=== PATIENT | male | born 1970 | race Caucasian/White ===

== ENCOUNTER 2022-07-25 19:04 | Observation (INO) | payer BC ==
[2022-07-25] MEDS ORDERED: Aspirin 81 MG Tab.Chew PO ONE (19:11)
[2022-07-25] MEDS ORDERED: Sodium Chloride 0.9% 1,000 ML IV SCH (19:15)
[2022-07-25 20:03] LABS: PTT,PARTIAL THROMBOPLSTIN TIME 26.7 SEC (23.2-32.3)
[2022-07-25] MEDS ORDERED: atorvaSTATin 10 MG Tab PO ONE (20:51)
[2022-07-25] MEDS: Sodium Chloride 0.9% 1,000 ML IV SCH (20:55)
[2022-07-25 21:03] LABS: CORONAVIRUS COVID-19 NAA NEGATIVE (NEGATIVE)
[2022-07-25 21:04] LABS: RESPIRATORY SYNCYTIAL VIR NAA NEGATIVE (NEGATIVE)
[2022-07-25] MEDS ORDERED: Oseltamivir 75 MG Cap PO ONE (21:12)
[2022-07-25] MEDS ORDERED: Ondansetron 4 MG Tab.DIS PO PRN (22:09)
[2022-07-26] MEDS: Acetaminophen 325 MG Tab PO PRN ×2 (03:05→11:27)
[2022-07-26] MEDS: Sodium Chloride 0.9% 1,000 ML IV SCH (04:46)
[2022-07-26] MEDS ORDERED: Lisinopril 20 MG Tab PO SCH (08:00)
[2022-07-26] MEDS ORDERED: Spironolactone 25 MG Tab PO SCH (08:00)
[2022-07-26] MEDS ORDERED: Metoprolol Succinate 100 MG Tab.ER PO SCH (08:00)
[2022-07-26] MEDS ORDERED: Oseltamivir 30 MG Cap PO SCH (08:00)
[2022-07-26] MEDS ORDERED: atorvaSTATin 10 MG Tab PO SCH (20:00)
[2022-07-26] MEDS ORDERED: Enoxaparin 40 MG/0.4 ML Syringe SUBCUT SCH (20:00)
== END 2022-07-26 13:00 | disposition home or self-care (01) ==
LOC: CC.ED 19:04 → CC.MS 21:15 → UNDOADMOB 21:15 → CC.MS 22:09
PROVIDERS: ADMIT Nurse Practitioner Family; ATTEND Nurse Practitioner Family
DX: N17.9 Acute kidney failure, unspecified (principal); E86.0 Dehydration; J10.1 Influenza due to other identified influenza virus with other respiratory manifestations; I44.4 Left anterior fascicular block; Z79.899 Other long term (current) drug therapy; Z79.84 Long term (current) use of oral hypoglycemic drugs; Z20.822 Contact with and (suspected) exposure to COVID-19; Z91.030 Bee allergy status
CPT/HCPCS: 0241U; 36415; 71045; 80048; 80053; 81001; 83605; 83735; 84484; 85025; 85610; 85730; 93005; 93010; 96360; 99285-25; A9270-GY; J7030

== ENCOUNTER 2023-04-24 07:57 | Emergency (ER) | payer BC ==
[2023-04-24] MEDS ORDERED: Sodium Chloride 0.9% 1,000 ML IV ONE (08:31)
[2023-04-24 08:52] LABS: BILIRUBIN TOTAL 0.5 mg/dL (0.0-1.0); C-REACTIVE PROTEIN 0.18 mg/dL (<=0.30); CALCIUM 9.8 mg/dL (8.4-10.1); EST CRCL DRUG DOSING (CG) 17.84 mL/min; POTASSIUM,K 5.5 mEq/L (3.5-5.0); PROTEIN TOTAL,TP 8.6 g/dL (6.4-8.2)
[2023-04-24 08:59] LABS: CREATININE 5.1 mg/dL (0.7-1.3)
[2023-04-24] MEDS ORDERED: Glucagon,Human Recombinant 1 MG Vial IM PRN ×2 (09:04→11:11)
[2023-04-24] MEDS ORDERED: 50% Dextrose in Water 50 ML Syringe IVPUSH ONE (09:04)
[2023-04-24] MEDS ORDERED: Insulin Regular, Human 100 Units/ML 3 ML Vial IV ONE ×2 (09:04→11:11)
[2023-04-24 09:07] LABS: HEMATOCRIT 58.7 % (42.0-52.0); MEAN CORPUSCULAR HEMOGLOBIN 28.7 pg (27.0-32.0); MEAN CORPUSCULAR HGB CONC 32.9 g/dL (32.0-36.0); MEAN CORPUSCULAR VOLUME 87.4 fL (83.0-97.0); PLATELET COUNT,PLT 529 10^3/uL (150-400); RED BLOOD CELL COUNT 6.72 x10^6/uL (4.50-6.00)
[2023-04-24] MEDS ORDERED: Calcium Gluconate 1 GM in Sodium Chloride 0.9% 100 ML IV ONE ×2 (09:07→10:51)
[2023-04-24] MEDS ORDERED: Dextrose 10% in Water 1,000 ML IV SCH (09:15)
[2023-04-24] MEDS ORDERED: Sodium Chloride 0.9% 1,000 ML IV SCH (09:15)
[2023-04-24 09:20] LABS: HEMOGLOBIN 19.3 g/dL (14.0-18.0); WHITE BLOOD CELL COUNT,WBC 26.6 10^3/uL (4.0-11.0)
[2023-04-24] MEDS ORDERED: Lactated Ringers 1,000 ML IV ONE (09:28)
[2023-04-24] MEDS ORDERED: Morphine 2 MG/ML SYRINGE IVPUSH ONE (09:31)
[2023-04-24 09:35] LABS: LYMPHOCYTES PERCENT MAN 13 % (21-55); MONOCYTES PERCENT MAN 8 % (2-12); SEG NEUTROPHILS PERCENT MAN 79 % (35-85)
[2023-04-24] MEDS ORDERED: VANCOmycin 2 GM/400 ML 2 GM in Premix Bag 1 BAG IV ONE (09:37)
[2023-04-24] MEDS ORDERED: Piperacillin/Tazobactam 4.5 GM in Sodium Chloride 0.9% 100 ML IV ONE (09:37)
[2023-04-24] MEDS ORDERED: Lactated Ringers 1,000 ML IV SCH (09:45)
[2023-04-24] MEDS: Dextrose 5%-Lactated Ringers 1,000 ML ONE ×2 (10:01→10:22)
[2023-04-24] MEDS ORDERED: Dextrose 5%-Lactated Ringers 1,000 ML IV SCH (10:15)
[2023-04-24 10:50] LABS: ALBUMIN 3.4 g/dL (3.4-5.0); BILIRUBIN TOTAL 0.4 mg/dL (0.0-1.0); CALCIUM 9.5 mg/dL (8.4-10.1); EST CRCL DRUG DOSING (CG) 18.96 mL/min; POTASSIUM,K 5.4 mEq/L (3.5-5.0); PROTEIN TOTAL,TP 7.3 g/dL (6.4-8.2)
[2023-04-24 10:53] LABS: CREATININE 4.8 mg/dL (0.7-1.3)
[2023-04-24] MEDS ORDERED: 50% Dextrose in Water 50 ML Syringe IVPUSH PRN (11:11)
[2023-04-24] MEDS ORDERED: Sodium Bicarbonate 8.4% 50 MEQ/50 ML Syringe IVPUSH ONE (11:34)
[2023-04-24 12:17] LABS: ALBUMIN 3.3 g/dL (3.4-5.0); BILIRUBIN TOTAL 0.5 mg/dL (0.0-1.0); CALCIUM 9.8 mg/dL (8.4-10.1); EST CRCL DRUG DOSING (CG) 20.22 mL/min; POTASSIUM,K 4.9 mEq/L (3.5-5.0)
[2023-04-24 12:24] LABS: CREATININE 4.5 mg/dL (0.7-1.3)
== END 2023-04-24 13:30 ==
LOC: CC.ED 07:57
DX: A41.9 Sepsis, unspecified organism (principal); R65.20 Severe sepsis without septic shock; N17.9 Acute kidney failure, unspecified; E87.1 Hypo-osmolality and hyponatremia; E87.5 Hyperkalemia; I10 Essential (primary) hypertension; E78.00 Pure hypercholesterolemia, unspecified; Z90.49 Acquired absence of other specified parts of digestive tract; Z79.899 Other long term (current) drug therapy; Z20.822 Contact with and (suspected) exposure to COVID-19; Z91.030 Bee allergy status
CPT/HCPCS: 36415; 71045; 80053; 82550; 83605; 84484; 85025; 86140; 87635; 93005; 96361; 96365; 96366; 96367; 96375; 99291; 99292; J0612; J2543; J3370; J3490; J7030; J7120; J7121; 93010; J1815-GY; U0002

== ENCOUNTER 2023-06-16 10:28 | Emergency (ER) | payer BC ==
[2023-06-16 10:58] LABS: BASOPHILS ABSOLUTE AUTO 0.05 10^3/uL (0.00-0.50); BASOPHILS PERCENT AUTO 0.4 % (0-1); EOSINOPHILS ABSOLUTE AUTO 0.24 10^3/uL (0.00-1.50); EOSINOPHILS PERCENT AUTO 1.9 % (0-6); HEMATOCRIT 50.6 % (42.0-52.0); HEMOGLOBIN 16.6 g/dL (14.0-18.0); IMMATURE GRAN ABSOLUTE AUTO 0.04 10^3/uL (0.00-0.49); IMMATURE GRAN PERCENT AUTO 0.3 % (0.0-4.9); LYMPHOCYTES ABSOLUTE AUTO 2.82 10^3/uL (0.60-5.00); LYMPHOCYTES PERCENT AUTO 22.2 % (24-44); MEAN CORPUSCULAR HEMOGLOBIN 28.9 pg (27.0-32.0); MEAN CORPUSCULAR HGB CONC 32.8 g/dL (32.0-36.0); MEAN CORPUSCULAR VOLUME 88.2 fL (83.0-97.0); MONOCYTES ABSOLUTE AUTO 0.96 10^3/uL (0.00-1.50); MONOCYTES PERCENT AUTO 7.5 % (0-10); NEUTROPHILS ABSOLUTE AUTO 8.62 x10^3/uL (1.80-8.00); NEUTROPHILS PERCENT AUTO 67.7 % (41-71); PLATELET COUNT,PLT 357 10^3/uL (150-400); RED BLOOD CELL COUNT 5.74 x10^6/uL (4.50-6.00); WHITE BLOOD CELL COUNT,WBC 12.7 10^3/uL (4.0-11.0)
[2023-06-16 11:00] LABS: APPEARANCE,URINE CLEAR (CLEAR); BILIRUBIN,URINE NEGATIVE (NEGATIVE); COLOR,URINE YELLOW (YELLOW); GLUCOSE,URINE NEGATIVE (NEGATIVE); KETONES,URINE NEGATIVE (NEGATIVE); LEUKOCYTE ESTERASE,URINE NEGATIVE (NEGATIVE); NITRITE,URINE NEGATIVE (NEGATIVE); OCCULT BLOOD,URINE NEGATIVE (NEGATIVE); PROTEIN,URINE NEGATIVE (NEGATIVE); UROBILINOGEN,URINE 0.2 EU/dL (0.2-1.0)
[2023-06-16 11:21] LABS: ALANINE AMINOTRANSFERASE,ALT 28 U/L (12-78); ALBUMIN 3.5 g/dL (3.4-5.0); ALKALINE PHOSPHATASE 62 U/L (46-116); ASPARTATE AMNIOTRANSFERASE,AST 16 U/L (15-37); BILIRUBIN TOTAL 0.5 mg/dL (0.0-1.0); BLOOD UREA NITROGEN,BUN 21 mg/dL (7-18); CALCIUM 9.5 mg/dL (8.4-10.1); CARBON DIOXIDE,CO2 29 mmol/L (21-32); CHLORIDE,CL 101 mEq/L (98-106); CREATININE 1.5 mg/dL (0.7-1.3); EST CRCL DRUG DOSING (CG) 60.66 mL/min; GLUCOSE RANDOM 187 mg/dL (75-99); POTASSIUM,K 4.3 mEq/L (3.5-5.0); PROTEIN TOTAL,TP 7.4 g/dL (6.4-8.2); SODIUM,NA 137 mEq/L (136-145)
[2023-06-16 11:22] LABS: C-REACTIVE PROTEIN < 0.50 mg/dL (<=0.50); ESTIMATED GFR 55 mL/min (>=60)
[2023-06-16] MEDS ORDERED: methylPREDNISolone Sodium Succinate 125 MG/2 ML SDV IM STA (11:30)
[2023-06-16] MEDS ORDERED: HYDROmorphone 1 MG/ML Syringe SUBCUT ONE (11:30)
[2023-06-16] MEDS ORDERED: Take Home: Acetaminophen/HYDROcodone 325-5 MG, 2 Tab Pack PO ONE (11:34)
[2023-06-16] MEDS ORDERED: Take Home: predniSONE 20 MG, 2 Tab Pack PO ONE (11:35)
== END 2023-06-16 12:15 | disposition home or self-care (01) ==
LOC: CC.ED 10:28
DX: M54.31 Sciatica, right side (principal); I10 Essential (primary) hypertension; E78.00 Pure hypercholesterolemia, unspecified; Z91.030 Bee allergy status; Z79.899 Other long term (current) drug therapy; Z90.49 Acquired absence of other specified parts of digestive tract
CPT/HCPCS: 36415; 80053; 81003; 85025; 86140; 96372; 99283; A9270; J1170; J2930; J7512; 99284